=== PATIENT | male | born 1945 | race Caucasian/White ===

== ENCOUNTER → 2020-06-12 | Outpatient (CLI) | payer MEDICARE, OTHER ==
[~2020-06-12] MED LIST: ASPIRIN 81M81 MG/TA2 PO; AVAPRO300 M1 PO; BYSTOLIC5 MG PO; MEVACOR40 MG PO; MICROZIDE12.5 MG PO
== END ==
LOC: COL.RAD 09:02
DX: C61 Malignant neoplasm of prostate (principal); C79.51 Secondary malignant neoplasm of bone
CPT/HCPCS: A9503; Q9967

== ENCOUNTER → 2020-08-20 | Outpatient (CLI) | payer MEDICARE, OTHER ==
[~2020-08-20] MED LIST changes: +CITRACAL-D3 ER1 EACH PO; +HYGROTON 2525 MG/TAB PO; +OCUVITE1 TA1 PO; +ONE-A-DAY ESSE1 EACH PO; +RESTORE PO; +TENORMIN 5050 MG/TAB PO; +VITAMINC1000TA PO
== END ==
LOC: COL.RAD 13:00
DX: C61 Malignant neoplasm of prostate (principal); R91.1 Solitary pulmonary nodule; M89.9 Disorder of bone, unspecified
CPT/HCPCS: Q9967

== ENCOUNTER → 2020-12-02 | Outpatient (CLI) | payer MEDICARE, OTHER ==
[~2020-12-02] MED LIST changes: +ACULAR LS 5 ML5 ML OS; +COZAAR 50MG50 MG/TAB PO; +HYGROTON 2525 MG/TAB; +PREDFORTE5ML; +PREDNISONE 5MG5 MG PO; +ZYTIGA250 MG PO
== END ==
LOC: COL.RAD 08:59
DX: M89.9 Disorder of bone, unspecified (principal); Z98.890 Other specified postprocedural states; C61 Malignant neoplasm of prostate
CPT/HCPCS: A9503; Q9967

== ENCOUNTER 2021-05-26 14:02 | Emergency (ER) | payer MEDICARE, OTHER ==
[~2021-05-26] VITALS: Ht 175.3 cm; Wt 113.6 kg
[~2021-05-26 14:02] MED LIST changes: -ACULAR LS 5 ML5 ML OS; -COZAAR 50MG50 MG/TAB PO; -HYGROTON 2525 MG/TAB; -PREDFORTE5ML; -PREDNISONE 5MG5 MG PO; -ZYTIGA250 MG PO
[2021-05-26 14:39] VITALS: TEMP 98.1
[2021-05-26 16:33] LABS: BASO % 0.5 % (0.0-2.0); EOS # 0.1 (0.0-0.7); EOS % 1.1 % (0-4.0); GRAN # 3.9 (1.4-6.5); GRAN % 70.3 % (42.2-75.2); LYMPH # 1.1 (1.2-3.4); LYMPH % 18.9 % (20.0-51.0); MEAN CELL VOLUME 99 fl (80.0-100.0); MEAN CORPUSCULAR HEMOGLOBIN 33 pg (27.0-31.0); MEAN CORPUSCULAR HGB CONC 33 g/dl (33.0-37.0); MEAN PLATELET VOLUME 10.2 fl (7.4-10.4); MONO # 0.5 (0.1-0.6); MONO % 8.8 % (1.7-9.3); PLATELET COUNT 231 K/mm3 (130-400); RED BLOOD COUNT 3.38 M/mm3 (4.20-5.60); REDCELL DISTRIBUTION WIDTH-CV 13.9 % (11.5-14.5)
[2021-05-26 16:40] LABS: INR 1.1 (0.8-3.0); PROTHROMBIN TIME 11.9 SECONDS (9.7-12.8)
[2021-05-26 16:45] LABS: ALBUMIN 4.1 gm/dL (3.5-5.0); BILIRUBIN,TOTAL 0.9 mg/dL (0.0-1.0); CALCIUM 9.5 mg/dL (8.4-10.2); CREATININE, serum 1.01 (0.66-1.25); POTASSIUM 3.7 mmol/L (3.4-5.0); TOTAL PROTEIN 6.9 gm/dL (6.4-8.2)
[2021-05-26 16:50] LABS: HEMATOCRIT 33.6 % (42.0-52.0)
[2021-05-26] MEDS ORDERED: TENORMIN 5050 MG/TAB PO (20:20)
[2021-05-26] MEDS ORDERED: HYGROTON 2525 MG/TAB (20:20)
[2021-05-26] MEDS ORDERED: PREDNISONE 5MG5 MG PO (20:21)
[2021-05-26] MEDS ORDERED: COZAAR 50MG50 MG/TAB PO (20:21)
[2021-05-26] MEDS ORDERED: ZYTIGA250 MG PO (20:21)
[2021-05-26] MEDS ORDERED: ACULAR LS 5 ML5 ML OS (20:23)
[2021-05-26] MEDS ORDERED: PREDFORTE5ML (20:23)
[2021-05-26 21:34] VITALS: BP 109/65; PULSE 48
== END 2021-05-26 21:35 | disposition short-term general hospital (02) ==
LOC: COL.ER 14:02
PROVIDERS: Emergency Medicine
DX: I77.1 Stricture of artery (principal); I10 Essential (primary) hypertension; Z79.899 Other long term (current) drug therapy
CPT/HCPCS: J1644